=== PATIENT | male | born 1955 ===

== ENCOUNTER 2023-02-01 12:12 | Day surgery (SDC) | payer OTHER ==
[~2023-02-01] VITALS: Ht 157.5 cm; Wt 77.1 kg
[2023-02-01] MEDS ORDERED: diphenhydrAMINE 50 MG/ML VIAL ONE (13:07)
[2023-02-01] MEDS ORDERED: MIDAZOLAM 5 MG/5 ML VIAL ONE (13:08)
[2023-02-01] MEDS ORDERED: fentaNYL citrate 0.05 MG/ML VIAL ONE (13:08)
[2023-02-01] MEDS ORDERED: fentaNYL citrate 0.05 MG/ML VIAL IVP ONE (13:40)
[2023-02-01] MEDS ORDERED: MIDAZOLAM 5 MG/5 ML VIAL IV ONE (13:40)
== END 2023-02-01 14:40 | disposition home or self-care (01) ==
LOC: MDS 12:12 → MMU 12:13 → MDS 14:40
PROVIDERS: ATTEND Internal Medicine Gastroenterology
DX: R14.0 Abdominal distension (gaseous) (principal); I10 Essential (primary) hypertension; E11.9 Type 2 diabetes mellitus without complications; K21.9 Gastro-esophageal reflux disease without esophagitis; K59.00 Constipation, unspecified; Z20.822 Contact with and (suspected) exposure to COVID-19; Z79.899 Other long term (current) drug therapy
CPT/HCPCS: 43239; 87426; 88305; 88312; 88313; 88342; J2250; J3010; J1200